=== PATIENT | female | born 2000 | race Caucasian/White ===

== ENCOUNTER 2021-04-28 02:44 | Outpatient (CLI) | payer MEDICAID, SELFPAY ==
--- NOTE | 2021-04-28 14:57 | DI.US_ITS ---
APPROVED REPORT EXAM: Comprehensive 2D, Doppler, and color-flow Echocardiogram Patient Location: Out-Patient Clinical Rehabilitation Coordinator: Krystal Coto RDCS (AE) Indications: SOB Conclusion Normal left ventricular wall thickness and chamber size. Estimated ejection fraction is 60%. Wall m otion is normal Normal right ventricular size and systolic function Both atria are normal in size There are no structural or hemodynamically significant valvular abnormalities Wall motion Left Ventricle The left ventricle is normal size. The left ventricular systolic function is normal. The left ventric ular ejection fraction is within the normal range. There is normal left ventricular wall thickness. T here is normal LV segmental wall motion. There is no ventricular septal defect visualized. LVEF is 60 %. Right Ventricle The right ventricle is normal size. The right ventricular systolic function is normal. Atria The left atrium size is normal. The right atrium size is normal. The interatrial septum is intact wit h no evidence for an atrial septal defect. Aortic Valve The aortic valve is normal in structure. Aortic valve is trileaflet. There is no aortic valvular sten osis. No aortic regurgitation is present. Mitral Valve The mitral valve is normal in structure. No evidence of mitral valve stenosis. Trace mitral regurgita tion. Tricuspid Valve The tricuspid valve is normal in structure. There is no tricuspid valve stenosis. Trace tricuspid reg urgitation. Pulmonic Valve The pulmonary valve is normal in structure. There is no pulmonic valvular stenosis. There is no pulmo harjeet valvular regurgitation. Great Vessels The aortic root is normal in size. The ascending aorta is normal in size. Aortic arch is normal in ca liber. IVC is normal in size and collapses >50% with inspiration. Pericardium There is no pericardial effusion. 2D Dimensions IVSD d PLAX 0.71 cm F: 0.6-1.0 LV Vol A2C d MOD 85.3 mL LVPW d PLAX 0.75 cm F: 0.6 - 1.0 LV Vol A4C d MOD 88.5 mL LVID d PLAX 4.25 cm F: 3.8 - 5.2 LA vol/ BSA A2C s A-L 26.7 mL/m2 LVDs 3.00 cm F: 2.2 - 3.5 LA vol/ BSA A4C s A-L 28.4 mL/m2 Ao Root d 2.86 cm F: 2.7 - 3.3 LA Vol/ BSA Biplane s A-L 27.6 mL/m2 RA Area A4C 7.74 cm2 LA Area A4C s MOD 17.26 cm2 RA Vol/ BSA A4C s A-L 8.0 mL/m2 LA Area A2C s MOD 16.69 cm2 Ao Asc Diam d 2.38 cm F: 2.3 - 3.1 LV EF A4C MOD 60.4 % LV EF Teichholz 56.4 % LV EF A2C MOD 59.2 % LVEF (Shaikh's) 59.76 % F: 54 - 74 LV EF Biplane MOD 59.8 % LV Volume 69.03 mL F: 46 - 106 SV 52.21 mL LV Volume Index 40.13 mL/m2 F: 29 - 61 SV Index 30.29 mL/m2 LV Vol Biplane MOD 87.4 mL FS 29.15 % M-Mode TAPSE 2.11 cm (M/F) >1.7 LV Diastology MV E' medial 0.140 (>0.07 m/s) E/A Ratio 1.4 LV E/e MED 6.55 (<14) MV E Vmax 0.92 (0.4-1.3 m/s) MV E' lateral 0.192 (>0.1 m/s) MV A Vmax 0.65 (0.4-1.3 m/s) LV E/e LAT 4.75 (<14) MV E/A Ratio 1.40 MV E/E' medial 6.56 MV E/E' lateral 4.78 Aortic Valve LVOT Area 3.39 cm2 AoV Area Vmax 2.93 cm2 LVOT Vmax 1.10 m/s AoV Area/ BSA (Vmax) 1.70 cm2/m2 LVOT Mean Ruben. 0.72 m/s GABRIEL Mean Ruben. 2.69 cm2 LVOT Peak Grad 4.8 mmHg GABRILE Mean Ruben. Index 1.56 cm2/m2 LVOT Mean Grad 2.4 mmHg LVOT VTI 0.214 m LVOT Diam s 2.05 cm AoV Vmax 1.27 m/s Velocity Ratio 0.86 AoV Mean Ruben. 0.90 m/s AoV Peak Grad 6.5 mmHg LVOT SV 72.73 mL AoV Mean Grad 3.6 mmHg AoV VTI 0.230 m AoV Area VTI 3.16 cm2 AoV Area/ BSA (VTI) 1.83 cm/m2 Mitral Valve MV DT 210 (160-240 msec) MV PHT 61 msec MV Area PHT 3.61 cm2 MV VTI 0.230 m MV Area VTI 3.16 (4.0-6.0 cm2) Pulmonary Valve PV Vmax 0.93 (0.5-1.5 m/s) RVOT Peak Gr. 2.36 mmHg PV Peak Grad 3.5 mmHg RVOT Mean Gr. 1.25 mmHg PV Mean Grad 1.9 mmHg RVOT VTI 0.175 m PV VTI 0.199 m RVOT Vmax 0.77 m/s
== END 2021-04-28 03:04 ==
PROVIDERS: PCP Nurse Practitioner Pediatrics; Visit Provider Physician Assistant Medical
DX: R06.02 Shortness of breath (principal)
CPT/HCPCS: 93306

== ENCOUNTER 2021-04-28 04:28 | Outpatient (CLI) | payer MEDICAID, SELFPAY ==
[2021-04-28] MEDS: Albuterol HFA 18 GM 200 PUFF INH IH (11:23)
[2021-04-28] MEDS: Inhaler, Assist Device 1 EACH MC (11:24)
--- NOTE | 2021-04-29 12:27 | W.PFT ---
Date of service: 04/28/21 Time of Service: 10:02 Pulmonary Function Test Result Requesting Provider Emily Martines Indications: ARROYO Interpretation Spirometry: There is no airflow limitation. Lung Volumes: Lung volumes are normal. Diffusion Capacity: The diffusion is normal Airway Pressure: Airways resistance is normal Impression Normal pulmonary function testing Clinical Correlation therefore is recommended.
--- NOTE | 2021-04-29 12:32 | W.PFT ---
Date of service: 04/28/21 Time of Service: 08:00 Pulmonary Function Test Result Requesting Provider Aman Trivedi Indications: ARROYO Interpretation Spirometry: There is moderate airflow limitation. There is no significant bronchodilator effect. Lung Volumes: Lung volumes are normal. Diffusion Capacity: Diffusion is reduced Airway Pressure: Airways resistance is normal. Impression Moderate airflow obstruction with a low diffusion. In the correct clinical setting this could represent COPD with emphysema. Clinical Correlation therefore is recommended.
== END 2021-04-28 04:29 | disposition home or self-care (01) ==
PROVIDERS: PCP Nurse Practitioner Pediatrics; Visit Provider Physician Assistant Medical
DX: R06.09 Other forms of dyspnea (principal); R07.9 Chest pain, unspecified; Z87.891 Personal history of nicotine dependence
CPT/HCPCS: 94060; 94726; 94729

== ENCOUNTER 2022-05-24 10:08 | Outpatient (REF) | payer MEDICAID, SELFPAY ==
--- NOTE | 2022-05-24 09:15 | PAPFT_PTH ---
PATIENT: Sundar Banks LOC: [facility] U#:[id number] AGE/SX: 21/F ROOM: RE05/24/[address]: Delfina Minor NP : 2000 BED: DIS: 05/24/2022 SPEC #: [id number] RECD: 05/24/22 12:55 STATUS: SAVITA REPlacido #: [id number] ELSA: 05/24/22 09:[address]: Delfina Minor NP DEPT: [facility] Cytology RECD BY: Faith Maloney ENTERED: 05/24/22 12:55 SP TYPE: PAPFT OTHR DR: DAMIÁN Poole Tissues: 1 - CX/ENDOCX FOR PAP SMEARS Procedures: PAP THIN PREP/[facility] Screening Comments: [id number]
== END 2022-05-24 10:09 | disposition home or self-care (01) ==
LOC: LBN 10:08
PROVIDERS: PCP Nurse Practitioner Pediatrics; Visit Provider Nurse Practitioner Women's Health
DX: Z12.4 Encounter for screening for malignant neoplasm of cervix (principal)
CPT/HCPCS: 88142

== ENCOUNTER 2022-11-13 16:25 | Outpatient (REF) | payer MEDICAID, SELFPAY ==
[2022-11-13 19:00] LABS: Abs Immature Grans 0.01 10^3/uL (0.0-0.06); Absolute Basophil Count 0.04 10^3/uL (0.0-0.2); Absolute Eosinophil Count 0.05 10^3/uL (0.0-0.7); Absolute Monocyte Count 0.42 10^3/uL (0.1-0.8); Absolute Neutrophil Count 4.69 10^3/uL (1.2-6.7); Basophils % 0.6; Eosinophils % 0.8; HCT 40.6 % (36.0-46.0); HGB 13.2 g/dL (11.2-15.7); Immature Grans % 0.2; MCH 26.5 pg (27.0-33.0); MCHC 32.5 % (32.0-36.0); MCV 82 fL (80-95); MPV 9.8 fL (8.0-11.0); Monocytes % 6.5; Neutrophils % 71.9; Platelet Count 213 10^3/uL (130-400); RBC 4.98 10^6/uL (3.93-5.22); RDW-SD 38.3 fL; WBC 6.51 10^3/uL (4.4-10.8)
[2022-11-13 19:26] LABS: ALT 21 U/L (14-59); AST 23 U/L (15-37); Albumin 4.1 g/dL (3.4-5.0); Alkaline Phosphatase 55 U/L (46-116); Anion Gap 8.5 mmol/L (3-11); BUN 9 mg/dL (7-18); Bilirubin, Total 0.4 mg/dL (0.2-1.0); CO2 26.5 mmol/L (21.0-32.0); CREATININE 0.8 mg/dL (0.55-1.02); Calcium 9.5 mg/dL (8.5-10.1); Chloride 105 mmol/L (98-107); Estimated GFR 106.77 (mL/min/1.73m2); Glucose 97 mg/dL (74-106); Potassium 4.2 mmol/L (3.5-5.1); Sodium 140 mmol/L (136-145); TSH (W/Ref FT4) 0.37 uIU/mL (0.36-3.74); Total Protein 7.9 g/dL (6.4-8.2)
== END 2022-11-13 16:26 | disposition home or self-care (01) ==
LOC: NCHCN 16:25
PROVIDERS: Visit Provider Nurse Practitioner Family
DX: R56.9 Unspecified convulsions (principal); F39 Unspecified mood [affective] disorder
CPT/HCPCS: 80053; 84443; 85025

== ENCOUNTER 2023-10-29 03:27 | Outpatient (CLI) | payer MEDICAID, SELFPAY ==
[2023-11-01 12:07] LABS: Clam IgE <0.10 kU/L (<0.70); Crab IgE <0.10 kU/L (<0.70); Lobster IgE <0.10 kU/L (<0.70); Mango, IgE <0.10 kU/L (<0.70); Oyster IgE <0.10 kU/L (<0.70); Pineapple, IgE <0.10 kU/L (<0.70); Scallop IgE <0.10 kU/L (<0.70); Shrimp IgE <0.10 kU/L (<0.70)
== END 2023-10-29 03:28 | disposition home or self-care (01) ==
LOC: LBO 03:28
PROVIDERS: Visit Provider Physician Assistant
DX: Z91.018 Allergy to other foods (principal); T78.1XXA Other adverse food reactions, not elsewhere classified, initial encounter; Z91.09 Other allergy status, other than to drugs and biological substances
CPT/HCPCS: 36415; 86003

== ENCOUNTER 2023-11-21 15:22 | Outpatient (REF) | payer MEDICAID, SELFPAY ==
[2023-11-21 19:30] LABS: Abs Immature Grans 0.02 10^3/uL (0.0-0.06); Absolute Basophil Count 0.06 10^3/uL (0.0-0.2); Absolute Eosinophil Count 0.07 10^3/uL (0.0-0.7); Absolute Lymphocyte Count 1.74 10^3/uL (1.2-3.4); Absolute Monocyte Count 0.53 10^3/uL (0.1-0.8); Absolute Neutrophil Count 5.25 10^3/uL (1.2-6.7); Basophils % 0.8 %; Eosinophils % 0.9 %; HCT 40.3 % (36.0-46.0); HGB 13.2 g/dL (11.2-15.7); Immature Grans % 0.3 %; Lymphocytes % 22.7 %; MCH 27.3 pg (27.0-33.0); MCHC 32.8 % (32.0-36.0); MCV 83 fL (80-95); MPV 9.7 fL (8.0-11.0); Monocytes % 6.9 %; Neutrophils % 68.4 %; Platelet Count 208 10^3/uL (130-400); RBC 4.83 10^6/uL (3.93-5.22); RDW 14.2 % (11.7-14.6); RDW-SD 43.5 fL; WBC 7.67 10^3/uL (4.4-10.8)
[2023-11-21 20:00] LABS: Iron 44 ug/dL (50-170); Total Iron Binding Capacity 309 ug/dL (250-450); Transferrin Sat 14 % (15-50)
[2023-11-21 20:11] LABS: ALT 22 U/L (14-59); AST 17 U/L (15-37); Albumin 4.3 g/dL (3.4-5.0); Anion Gap 7.9 mmol/L (3-11); BUN 7 mg/dL (7-18); Bilirubin, Total 0.47 mg/dL (0.2-1.0); CO2 28.1 mmol/L (21.0-32.0); CREATININE 0.9 mg/dL (0.55-1.02); Calcium 9.2 mg/dL (8.5-10.1); Chloride 103 mmol/L (98-107); Estimated GFR 92.12 (mL/min/1.73m2); FREE T4 1.05 ng/dL (0.76-1.46); Ferritin 19 ng/mL (8-252); Glucose 88 mg/dL (74-106); Potassium 4.1 mmol/L (3.5-5.1); Sodium 139 mmol/L (136-145); TSH 0.02 uIU/Ml (0.36-3.74); Total Protein 7.6 g/dL (6.4-8.2); Vitamin B12 848 pg/mL (193-986); Vitamin D 25 Total 20.6 ng/mL (30-100)
[2023-11-21 20:13] LABS: Folate > 20.0 ng/mL (8.6-20.0)
[2023-11-21 20:24] LABS: Alkaline Phosphatase 63 U/L (46-116)
== END 2023-11-21 15:23 | disposition home or self-care (01) ==
LOC: NCHCN 15:22
PROVIDERS: Visit Provider Nurse Practitioner Family
DX: R53.83 Other fatigue (principal)
CPT/HCPCS: 80053; 82306; 82607; 82728; 82746; 83540; 83550; 84439; 84443; 85025

== ENCOUNTER 2024-01-29 03:09 | Outpatient (CLI) | payer MEDICAID, SELFPAY ==
[2024-01-29 10:40] LABS: Abs Immature Grans 0.01 10^3/uL (0.0-0.06); Absolute Basophil Count 0.03 10^3/uL (0.0-0.2); Absolute Eosinophil Count 0.06 10^3/uL (0.0-0.7); Absolute Monocyte Count 0.38 10^3/uL (0.1-0.8); Absolute Neutrophil Count 4.59 10^3/uL (1.2-6.7); Basophils % 0.5 %; HCT 36.4 % (36.0-46.0); HGB 11.9 g/dL (11.2-15.7); Immature Grans % 0.2 %; Lymphocytes % 19.1 %; MCH 27.1 pg (27.0-33.0); MCHC 32.7 % (32.0-36.0); MCV 83 fL (80-95); MPV 8.8 fL (8.0-11.0); Monocytes % 6.1 %; Neutrophils % 73.1 %; Platelet Count 176 10^3/uL (130-400); RBC 4.39 10^6/uL (3.93-5.22); RDW-SD 39.2 fL; WBC 6.27 10^3/uL (4.4-10.8)
== END 2024-01-29 03:10 | disposition home or self-care (01) ==
LOC: LBO 03:09
PROVIDERS: Visit Provider Obstetrics & Gynecology
DX: Z30.09 Encounter for other general counseling and advice on contraception (principal); N83.9 Noninflammatory disorder of ovary, fallopian tube and broad ligament, unspecified
CPT/HCPCS: 36415; 86850; 86900; 86901; 85025

== ENCOUNTER 2024-01-30 09:12 | Day surgery (SDC) | payer MEDICAID, SELFPAY ==
[2024-01-30] VITALS (19 sets, daily range): BP systolic 101–119; BP diastolic 59–81; PULSE 65–99; RESP 12–22; TEMP 36.1–36.7; O2SAT 97–100; BMI 22.8
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
[2024-01-30] MEDS: Lactated Ringers 1,000 ML 125 ML IV (09:48)
--- NOTE | 2024-01-30 10:50 | FALL_PTH ---
PATIENT: Sundar Banks LOC: [facility] U#:[id number] AGE/SX: 23/F ROOM: RE01/30/[address]: Sun Mancera DO : 2000 BED: DIS: 01/30/2024 SPEC #: [id number] RECD: 01/30/24 12:54 STATUS: SOUAlexey REQ #: [id number] ELSA: 01/30/24 10:[address]: Sun Mancera DEPT: Surgical Specimen RECD BY: Faith Maloney ENTERED: 01/30/24 12:55 SP TYPE: Fall OTHR DR: Rocio Majano Tissues: 1 - FALLOPIAN TUBE (STERILIZATION) 2 - FALLOPIAN TUBE (STERILIZATION) Procedures: GROSS AND MICRO LEVEL 2 Comments: [id number]
[2024-01-30] MEDS: Bupivacaine 0.25% Pres-Free 30 ML VIAL (10:59)
--- NOTE | 2024-01-30 11:18 | ROE_ITS ---
Date of service: 01/30/24 Time of Service: 11:18 Operative Note Operative Note DATE OF PROCEDURE: 01/30/24 PRE-OP DIAGNOSIS: Undesired fertility POST-OP DIAGNOSIS: same Small, 2 cm pedunculated uterine fibroid, left fundus. PROCEDURE: Laparoscopic bilateral salpingectomy SURGEON: Sun Mancera ASSISTING SURGEON: Yolanda Jett ANESTHESIA TYPE: General LMA/ETT Refer to Anesthesia Record ESTIMATED BLOOD LOSS: 10 PATHOLOGY: other (1. Right fallopian tube 2. Left fallopian tube) COMPLICATIONS: None Patient was transported to: PACU Patient's condition: stable Indications: Undesired fertility Findings: Normal-appearing ovaries bilaterally. Normal-appearing fallopian tubes bilaterally. Normal-appearing uterus. 2 cm left fundal pedunculated uterine fibroid Procedure Description: After full informed consent was obtained, patient was taken the operating suite with an IV running. She was placed in dorsal supine position and endotracheal intubation performed for the ministration of general anesthesia with ease. She had pneumatic compression stockings for DVT prophylaxis. No antibiotic prophylaxis was necessary. She was then placed on the modified dorsolithotomy position in [facility] and prepped and draped in usual sterile fashion. Exam under anesthesia revealed a uterus that was midline and mobile. Speculum was inserted into the posterior vaginal vault and a single-tooth tenaculum used to grasp the anterior lip of the cervix. Hulka manipulator was placed within and the tenaculum and speculum were removed. Attention was then turned to the abdomen where quarter percent Marcaine was used to infiltrate the umbilical area. A vertical incision was made. The anterior abdominal wall was elevated with sharp towel clips and a Veress needle inserted for creation of a pneumoperitoneum. A maximum pressure of 15 mmHg was utilized. After creation of the pneumoperitoneum, Veress needle was removed and a second right and left lower quadrant trocar site were placed after infiltration of quarter percent Marcaine under direct visualization. At this point, the abdomen and pelvis were inspected and noted to be without trauma. The right fallopian tube was identified and elevated. It was cautery transected and removed from the abdomen. Similar procedure was carried out on the left fallopian tube. Both pedicles were noted to be hemostatic. Remainder of the abdomen and pelvis were again inspected. There is the previously noted 2 cm left pedunculated uterine fibroid. Liver edge appeared normal. Pedicles were again reinspected and noted to be hemostatic. Pneumoperitoneum was released and all trocars were removed from the abdomen. The fascial incision was closed using 0 Vicryl suture in a [id number] fashion. Skin edges were reapproximated with 4-0 undyed Monocryl suture and Steri-Strips and sterile dressing were placed. The Hulka manipulator was removed from the uterus. The patient was returned to the dorsal supine position and awoke from anesthesia without difficulty. She was taken to the postanesthesia care unit in stable condition. Complications: None apparent Fluids: Crystalloid per anesthesia Findings: Normal-appearing tubes, ovaries, uterus. Small, 2 cm pedunculated left fundal fibroid. Pathology: 1 right fallopian tube 2 left fallopian tube
--- NOTE | 2024-01-30 11:48 | W.ANESPOSTOP ---
Postoperative Evaluation Date, Time and Location Date Performed: 01/30/24 Time Performed: 11:48 Patient Location: PACU Vital Signs Most Recent Imported Vital Signs: Most Recent Vital Signs Temp Pulse Resp BP Pulse Ox 36.4 C L 66 16 119/72 100 01/30/24 11:41 01/30/24 11:41 01/30/24 11:41 01/30/24 11:41 01/30/24 11:41 Pain Score Most Recent Pain Score: Most Recent Pain Score Pain Level 3 01/30/24 11:40 Assessment Mental Status: Awake (Alert & Oriented to Patient Baseline) Airway and Respiratory Function: Patent airway with normal (patient baseline) respiratory exam Cardiovascular Function: Hemodynamically Stable Hydration Status: Adequately Hydrated Nausea & Vomiting: No Nausea or Vomiting Pain: Pain is tolerable per patient Peripheral Nerve Block: Patient did not receive a nerve block
== END 2024-01-30 13:34 | disposition home or self-care (01) ==
PROVIDERS: PCP Nurse Practitioner Family; Visit Provider Obstetrics & Gynecology
PROC: (CPT 58661; principal; 2024-01-30 08:30)
DX: Z30.2 Encounter for sterilization (principal); F43.12 Post-traumatic stress disorder, chronic; G43.109 Migraine with aura, not intractable, without status migrainosus; Z79.899 Other long term (current) drug therapy; D25.9 Leiomyoma of uterus, unspecified
CPT/HCPCS: 58661; 81025; 88302; J0131; J0665; J1100; J1885; J2405; J3010; J3475